=== PATIENT | male | born 1955 | race Caucasian/White ===

== ENCOUNTER 2018-09-24 07:59 | Day surgery (SDC) | payer BC, OTHER ==
[2018-09-19 11:52] VITALS: BMI 36.5
[2018-09-24 08:38] VITALS: TEMP 97.8
[2018-09-24] MEDS ORDERED: PROPOFOL 20 ML ONE ×2 (09:01)
[2018-09-24 13:47] VITALS: PULSE 92
[2018-09-24 13:54] VITALS: BP 125/81
== END 2018-09-24 10:55 | disposition home or self-care (01) ==
LOC: FASU-ENDO 07:59
PROVIDERS: ATTEND Internal Medicine Gastroenterology
PROC: 0DJD8ZZ Inspection of Lower Intestinal Tract, Via Natural or Artificial Opening Endoscopic (ICD-10-PCS; principal; 2018-09-24 09:00)
DX: Z86.010 Personal history of colon polyps (principal)